=== PATIENT | female | born 1940 | race Caucasian/White ===

== ENCOUNTER 2016-12-04 14:55 | Inpatient (IN) | payer MEDICARE ==
--- NOTE | ~2016-12-04 | HP ---
Unit #: [id number] #: [id number] Patient: MAGALY DOTSON [id number] [address] [address] [id number] I MR#: [id number] NAME: MAGALY DOTSON. ROOM: 463 Age: 76 Sex: F Admission Date: 12/04/2016 : 1940 Attending Physician: Sai Gatica M.D. Primary Care Physician: Sai Gatica M.D. HISTORY AND PHYSICAL HISTORY OF PRESENT ILLNESS The patient is a 76-year-old white female with a history of osteoporosis, hypertension, hyperlipidemia, generalized anxiety disorder, dementia. She was seen in the ER with 24 hours of nausea, vomiting and fever. She was afebrile there. Flu swab was negative. Chest x-ray showed atelectasis but no obvious infiltrates. CT scan of the abdomen and pelvis was negative except for a small gallstone with an otherwise appearing normal gallbladder. Urinalysis was grossly abnormal consistent with a urinary tract infection and the patient was admitted. The patient is essentially nonverbal. She just smiles and laughs when examined and talked to. Her daughter is at the bedside and states that she appears to be feeling better and has not had any further nausea and vomiting in the past 24 hours. The patient is unaware that she has any urinary tract symptoms but, again, she is essentially nonverbal. ALLERGIES She has no known drug allergies. MEDICATIONS Her medications prior to admission: 1. Aspirin 81 mg daily. 2. Lexapro 20 mg daily. 3. Vitamin D 50,000 units weekly. 4. Pravastatin, dose unknown daily. 5. Lisinopril 20 mg daily. 6. Fosamax 70 mg weekly. PAST SURGICAL HISTORY The patient has no significant surgical history. PAST MEDICAL HISTORY 1. Hypertension. 2. Osteoporosis. 3. Hyperlipidemia. 4. Generalized anxiety disorder. 5. Dementia. SOCIAL HISTORY . Nonsmoker, nondrinker. No street drug use. FAMILY HISTORY Noncontributory. PHYSICAL EXAMINATION Unit #: [id number] #: [id number] Patient: MAGALY DOTSON GENERAL: She is awake, alert, again nonverbal, just smiles and laughs when questioned or talked to or examined. VITAL SIGNS: T-max overnight was 100.5 degrees, pulse 92, respirations 16. Blood pressure this morning was 81/55 but not repeated. O2 sat on range of motion air is 96%. HEENT: Unremarkable. NECK: Supple without JVD, bruits, adenopathy or thyromegaly. CHEST: Clear to auscultation. HEART: Regular rate and rhythm without any murmurs, rubs or gallops. ABDOMEN: Soft, nondistended, nontender with positive bowel sounds and no hepatosplenomegaly. EXTREMITIES: No clubbing, cyanosis or edema. /RECTAL: Deferred. NEUROLOGIC EXAM: Grossly intact except for the patient's obvious dementia. DIAGNOSTIC STUDIES LABORATORY: First set of cardiac enzymes were normal except for a CK MB of 9. Her troponin was less than 0.05. Second set of CK MB was 5 and troponin was still less than 0.05. CBC shows a white count of 13.8 with a left shift. It was otherwise normal. Influenzae A and B are negative. Lactic acid was 2, within normal limits. BNP is normal except for a BUN of 35, a GFR of 39.8 and random blood sugar of 141. PT and PTT are within normal limits. Urinalysis shows trace amount of leukocytes, one urobilinogen, 10-25 RBCs, 4+ bacteria, 5-10 hyaline casts. IMAGING: Single view chest x-ray - low lung volumes. Questionable mild cardiomegaly. Some vascular prominence which may be secondary to low lung volumes. Some kyphoscoliosis. CT scan of the abdomen and pelvis. No acute findings. Probable tiny gallstone near an otherwise appearing normal gallbladder. Urine culture has already come back this morning at greater than 100,000 colonies of Gram-negative rods, felt to be probably E. coli. Patient already started on Levaquin and IV fluids. IMPRESSION 1. Urinary tract infection with Gram-negative reagan. 2. Hypotension. 3. Dehydration. 4. Acute kidney injury. 5. Nausea and vomiting secondary to above. 6. Dementia. 7. Osteoporosis. 8. Hyperlipidemia. 9. Generalized anxiety disorder. 10. History of hypertension. PLAN Will give her an IV fluid bolus. Will continue her IV fluids. Please Unit #: [id number] #: [id number] Patient: MAGALY DOTSON note - her EKG on admission looks to be a sinus rhythm but there is a lot of baseline water and the computer has written it out as an accelerated junctional rhythm. There is low voltage QRS and nonspecific ST-T abnormality but, again, her cardiac enzymes are normal. It is going to be repeated today. Will follow her electrolytes, renal function. She has been placed on Lovenox for DVT prophylaxis. Her diet will be advanced. All of her home medicines are currently being held. Further evaluation pending results of above. Dictated by Sai Gatica M.D. ANA M/priya TD: 12/05/2016 07:44 JOB #: [id number] HISTORY AND PHYSICAL Page 1 of 1 X Sai Gatica MD X HISTORY AND PHYSICAL
--- NOTE | ~2016-12-04 | EKG ---
PATIENT: MAGALY DOTSON UNIT #: [id number] Ventricular Rate: 76 BPM Atrial Rate: 76 BPM QRS Duration: 66 ms Q-T Interval: 408 ms QTC Calculation(Bezet): 459 ms Calculated R [place]: -12 degrees Calculated T [place]: -6 degrees Diagnosis Line: Sinus rhythm Diagnosis Line: Low voltage QRS Baseline wander Diagnosis Line: Inferior infarct , age undetermined Diagnosis Line: Abnormal ECG Diagnosis Line: When compared with ECG of 04-DEC-2016 14:53, Diagnosis Line: (unconfirmed) Diagnosis Line: No significant change was found Diagnosis Line: Confirmed by JOHN JASMINE MD ([id number]) on 12/05/2016 Diagnosis Line: 9:22:48 PM INTERPRETING MD: KENROY RICHARD
--- NOTE | ~2016-12-04 | CT4 ---
[facility] A Service of [facility] RADIOLOGY TEXT RESULTS PATIENT: MAGALY DOTSON LOCATION: [place] [address] : [birth year] UNIT #: [id number] AGE: [address]: Sai Gatica MD SEX: F ORDER DR: [id number] [facility] [address] [facility] [place], [place] [address] [id number] E MR#: [id number] Acc #: [id number] NAME: MAGALY DOTSON : 1940 SEX: F STUDY DATE/TIME: 12/04/2016 15:08 UNIT: [facility] ROOM: STUDY DESCRIPTION: CT Abd and Pelv Wo Cont Attending Physician: Shalonda Ramirez M.D. Ordering Physician: Shalonda Ramirez M.D. Primary Care Physician: Sai Gatica M.D. MEDICAL IMAGING REPORT This report is preliminary unless electronic signature is present EXAM CT abdomen and pelvis, 12/04/2016. HISTORY Fever and vomiting for the last 2 days. TECHNIQUE Axial noncontrasted images were obtained through the abdomen and pelvis. Multiplanar reformats were obtained. This CT exam was performed with one or more of the following radiation dose reduction techniques: automatic exposure control, adjustment of mA and/or kV according to patient size, and iterative reconstruction. COMPARISON No comparison. FINDINGS ABDOMEN: There is atelectasis in both lung bases. The gallbladder may contain a tiny stone, but it is otherwise normal. No renal or ureteral stones are seen, and there is no hydronephrosis. The unenhanced solid organs are normal. The unopacified GI tract is grossly normal. No free fluid is seen. PELVIS: There are no lower ureteral stones. The bladder is normal. Solid pelvic organs are normal for patient age. The appendix is normal, as is the remainder of the unopacified GI tract. There are bilateral L5 pars defects with grade 1 spondylolisthesis at L5-S1. There is also degenerative disc disease at L5-S1. IMPRESSION 1. No acute findings in the abdomen or pelvis. 2. Grossly normal unopacified GI tract, including the appendix. STS. [facility] A Service of [facility] RADIOLOGY TEXT RESULTS PATIENT: MAGALY DOTSON LOCATION: [place] [address] : [birth year] UNIT #: [id number] AGE: [address]: Sai Gatica MD SEX: F ORDER DR: 3. No renal or ureteral stones. No hydronephrosis. 4. Probable tiny gallstone with an otherwise normal-appearing gallbladder. Dictated by... Arias Valadez Jr., M.D. THIS IS AN ELECTRONICALLY VERIFIED REPORT Arias Valadez Jr., M.D. at 12/05/2016 1:03 PM SHEMAR/nkiki TD: 12/04/2016 18:33 JOB #: [id number] MEDICAL IMAGING REPORT Page 1 of 1 COPY
--- NOTE | ~2016-12-04 | CR72 ---
[facility] A Service of [facility] RADIOLOGY TEXT RESULTS PATIENT: MAGALY DOTSON LOCATION: [place] [address] : 40 UNIT #: [id number] AGE: [address]: Sai Gatica MD SEX: F ORDER DR: [id number] [facility] [address] [place], [place] [address] [id number] E MR#: [id number] Acc #: [id number] NAME: MAGALY DOTSON : 1940 SEX: F STUDY DATE/TIME: 12/04/2016 14:44 UNIT: [facility] ROOM: STUDY DESCRIPTION: CR Chest Single View Portable Attending Physician: Shalonda Ramirez M.D. Ordering Physician: Shalonda Ramirez M.D. Primary Care Physician: Sai Gatica M.D. MEDICAL IMAGING REPORT This report is preliminary unless electronic signature is present EXAM Portable chest x-ray, 12/04/2016. HISTORY Vomiting. Fever, coughing up green mucus. Duration 1 day. TECHNIQUE AP radiograph of the chest is presented. COMPARISON No prior chest radiographs for comparison. FINDINGS Heart mildly enlarged. Some of this appearance may be artifactual and related to low lung volumes. Lung volumes are low with central bronchovascular crowding. Borderline vascular prominence may reflect the low lung volumes. Correlate with any clinical concern for mild vascular congestion. The right lung is otherwise clear. There are some patchy linear densities at the left lung base adjacent to the diaphragm, probably atelectatic in nature, given lung volumes. Basilar pneumonitis not excluded. No dense airspace disease, pleural effusion, or pneumothorax. No suspicious nodule. Thoracolumbar scoliosis, convex to right, mid thoracic spine, and to left lower thoracic spine and upper lumbar spine. No acute bony abnormality. The visualized bowel gas pattern within normal limits. Dictated by... Gage Musa M.D. THIS IS AN ELECTRONICALLY VERIFIED REPORT Gage Musa M.D. at 12/05/2016 5:13 PM JSK/nikki [facility] A Service of [facility] RADIOLOGY TEXT RESULTS PATIENT: MAGALY DOTSON LOCATION: [facility] 463-01 : 40 UNIT #: [id number] AGE: [address]: Sai Gatica MD SEX: F ORDER DR: TD: 12/04/2016 18:11 JOB #: [id number] MEDICAL IMAGING REPORT Page 1 of 1 COPY
--- NOTE | ~2016-12-04 | EKG ---
PATIENT: MAGALY DOTSON UNIT #: [id number] Ventricular Rate: 85 BPM Atrial Rate: 84 BPM QRS Duration: 68 ms Q-T Interval: 406 ms QTC Calculation(Bezet): 483 ms Calculated R [place]: -7 degrees Calculated T [place]: -13 degrees Diagnosis Line: Sinus rhythm Diagnosis Line: Low voltage QRS Diagnosis Line: Nonspecific ST and T wave abnormality Diagnosis Line: Abnormal ECG Baseline wander Diagnosis Line: No previous ECGs available Diagnosis Line: Confirmed by JOHN JASMINE MD ([id number]) on 12/05/2016 Diagnosis Line: 9:16:32 PM INTERPRETING MD: KERNOY RICHARD
--- NOTE | ~2016-12-04 | DS ---
Unit #: [id number] #: [id number] Patient: MAGALY DOTSON [id number] [address] [address] [id number] I MR#: [id number] NAME: MAGALY DOTSON. ROOM: 463 Age: 76 Sex: F Admission Date: 12/04/2016 : 1940 Discharge Date: 12/07/2016 Attending Physician: Sai Gatica M.D. Primary Care Physician: Sai Gatica M.D. DISCHARGE SUMMARY PRINCIPAL DISCHARGE DIAGNOSES 1. Extended-spectrum beta-lactamases Escherichia coli urinary tract infection with pyelonephritis. 2. Acute kidney injury secondary to dehydration. 3. Dementia. 4. Osteoporosis. 5. Hyperlipidemia. 6. Generalized anxiety disorder. 7. Hypotension. 8. Nausea and vomiting secondary to pyelonephritis. PROCEDURES None. CONSULTANTS None. REASON FOR HOSPITALIZATION The patient is a 76-year-old white female with history of osteoporosis, hypertension, hyperlipidemia, dementia, chills, anxiety disorder, seen in the emergency room with 24 hours of nausea, vomiting, and fever. In the ER, she was afebrile, had evidence of urinary tract infection and dehydration and was admitted for same. BP soon after admission fell with the systolic in the 80s. O2 sats were good at 96%. Cardiac enzymes were normal. White count was elevated at 13.8 with a left shift. Influenza A and B were negative. Lactic acid was 2.0. BUN 35, GFR 39.8. Coags normal. Chest x-ray; mild cardiomegaly, atelectasis of left lower lobe. Low lung volumes. EKG; baseline artifact, low-voltage QRS, nonspecific ST-T abnormality. A CT scan of the pelvis showed no active disease except for a probable gallstone and otherwise normal gallbladder and the patient was admitted. HOSPITAL COURSE The patient was admitted. She was given vigorous IV fluids for dehydration and hypotension. Her antihypertensives were held. She was started on Levaquin and Rocephin pending urine culture and blood cultures. Blood cultures showed no growth to date. Urine culture grew greater than 10 to the 5th ESBL E. coli. The patient is switched to Bactrim p.o. Currently, tolerating regular diet. No further nausea or vomiting. DIAGNOSTIC STUDIES LABORATORY RESULTS: Labs are stable. Currently, her CBC is normal except for hemoglobin of 11, which is dropped secondary to rehydration. Her BMP Unit #: [id number] #: [id number] Patient: MAGALY DOTSON is normal except for CO2 of 18 and a GFR of 48.7. She is being discharged home on a regular diet. CURRENT MEDICATIONS Lexapro 20 mg daily, pravastatin 40 mg daily, lisinopril is on hold, Fosamax 70 mg p.o. weekly, aspirin 81 mg p.o. daily, Bactrim double strength one p.o. b.i.d. for an additional 13 days for a full 14-day course for pyelonephritis. She is to have an office visit with me in 1 week with a CBC, BMP, and urinalysis. Dictated by... Sai Gatica M.D. ANA M/geraldine TD: 12/07/2016 23:13 JOB #: [id number] DISCHARGE SUMMARY Page 1 of 1 X Sai Gatica MD X DISCHARGE SUMMARY
[2016-12-04 14:44] LABS: POC - TROPONIN <0.05 ng/mL (<=0.05)
[~2016-12-04 14:55] MED LIST: ARICEPT PO; CARTIA XT PO; LEXAPRO PO; LISINOPRIL PO; NEXIUM PO; ZOCOR PO
[2016-12-04 14:56] LABS: URINE SOURCE CATH
[2016-12-04 15:01] LABS: BASOPHIL% 0.2 % (0-2.5); HEMATOCRIT 39.1 % (35.0-45.0); HEMOGLOBIN 12.6 gm/dL (12.0-16.0); LYMPHOCYTE# 1.2 X10e3 (1.0-3.5); LYMPHOCYTE% 8.7 % (17.0-45.0); MEAN CELL VOLUME 95.6 FL (83-96); MEAN CORPUSCULAR HEMOGLOBIN 30.9 PG (28-34); MEAN CORPUSCULAR HGB CONC 32.3 g/dL (30-36); MEAN PLATELET VOLUME 8.9 FL (6.5-11.5); MONOCYTE# 1.4 X10e3 (0-1.0); MONOCYTE% 10.4 % (3.0-12.0); NEUTROPHIL# 11.1 X10e3 (1.5-7.1); NEUTROPHIL% 80.7 % (40-75); PLATELET COUNT 349 X10e3 (140-420); RED BLOOD COUNT 4.09 X10e (3.90-5.30); RED CELL DISTRIBUTION WIDTH 12.3 % (11.0-15.5); WHITE BLOOD COUNT 13.8 X10e3 (4.0-10.5)
[2016-12-04 15:04] LABS: DIFF IND NO
[2016-12-04 15:21] LABS: INFLUENZA A NEG (NEG); INFLUENZA B NEG (NEG)
[2016-12-04 15:31] LABS: ALBUMIN SERUM 4.5 g/dL (3.5-5.0); BILIRUBIN, DIRECT 0.1 mg/dL (0.0-0.2); BILIRUBIN,INDIRECT 0.3 mg/dL (0.0-0.9); BILIRUBIN,TOTAL 0.4 mg/dL (0.2-2.0); BUN/CREATININE RATIO 26.92; CALCIUM SERUM 9.6 mg/dL (8.4-10.2); CREATININE SERUM 1.3 mg/dL (0.6-1.4); GLOM FILT RATE Estimated 39.8 mL/min (>60); POTASSIUM 4.3 mmol/L (3.5-5.1); PROTEIN TOTAL SERUM 8.1 g/dL (6.0-8.3)
[2016-12-04 15:33] LABS: PARTIAL THROMBOPLASTIN TIME 23.6 SECONDS (23.5-31.3); PROTHROMBIN TIME (PATIENT) 10.2 SECONDS (9.6-11.5)
[2016-12-04 15:41] LABS: URINE APPEARANCE CLOUDY; URINE BILIRUBIN NEG (NEG); URINE BLOOD TRACE (NEG); URINE COLOR YELLOW; URINE GLUCOSE NEG (NEG); URINE KETONE TRACE (NEG); URINE LEUKOCYTE ESTERASE TRACE (NEG); URINE NITRATE NEG (NEG); URINE PH 5.5 (5-8); URINE PROTEIN NEG (NEG); URINE SPECIFIC GRAVITY 1.024 (1.003-1.035)
[2016-12-04 15:45] LABS: CULTURE INDICATED? YES; URINE BACTERIA AUWI 4+ (NEGATIVE); URINE SQUAMOUS EPITHELIAL CELL OCC /[HPF]
[2016-12-04] MEDS ORDERED: ESCITALOPRAM OX20 MG PO (19:16)
[2016-12-04] MEDS ORDERED: ASPIRIN81 M2 PO (19:16)
[2016-12-04] MEDS ORDERED: PRAVASTATIN SOD40 MG PO (19:17)
[2016-12-04] MEDS ORDERED: VITAMIN D50000 UNIT PO (19:17)
[2016-12-04] MEDS ORDERED: LISINOPRIL20 MG PO (19:18)
[2016-12-04] MEDS ORDERED: ALENDRONATE SOD70 MG PO (19:18)
[2016-12-04 20:38] LABS: POC - TROPONIN <0.05 ng/mL (<=0.05)
[2016-12-06 04:19] LABS: BASOPHIL# 0.1 X10e3 (0-0.3); BASOPHIL% 0.9 % (0-2.5); EOSINOPHIL# 0.1 X10e3 (0-0.7); EOSINOPHIL% 1.7 % (0.0-7.0); HEMATOCRIT 31.2 % (35.0-45.0); LYMPHOCYTE# 1.8 X10e3 (1.0-3.5); LYMPHOCYTE% 26.3 % (17.0-45.0); MEAN CELL VOLUME 95.8 FL (83-96); MEAN CORPUSCULAR HEMOGLOBIN 31.4 PG (28-34); MEAN CORPUSCULAR HGB CONC 32.7 g/dL (30-36); MEAN PLATELET VOLUME 8.5 FL (6.5-11.5); MONOCYTE# 0.7 X10e3 (0-1.0); MONOCYTE% 10.8 % (3.0-12.0); NEUTROPHIL# 4.2 X10e3 (1.5-7.1); NEUTROPHIL% 60.3 % (40-75); PLATELET COUNT 230 X10e3 (140-420); RED BLOOD COUNT 3.25 X10e (3.90-5.30); RED CELL DISTRIBUTION WIDTH 12.4 % (11.0-15.5); WHITE BLOOD COUNT 6.9 X10e3 (4.0-10.5)
[2016-12-06 04:44] LABS: CALCIUM SERUM 8.3 mg/dL (8.4-10.2); GLOM FILT RATE Estimated 54.7 mL/min (>60); HEMOGLOBIN 10.2 gm/dL (12.0-16.0); POTASSIUM 4.3 mmol/L (3.5-5.1)
[2016-12-06 04:45] LABS: DIFF IND NO
[2016-12-07 04:04] LABS: BASOPHIL% 0.6 % (0-2.5); DIFF IND NO; EOSINOPHIL# 0.2 X10e3 (0-0.7); EOSINOPHIL% 1.9 % (0.0-7.0); LYMPHOCYTE# 1.6 X10e3 (1.0-3.5); LYMPHOCYTE% 20.2 % (17.0-45.0); MEAN CELL VOLUME 95.8 FL (83-96); MEAN CORPUSCULAR HEMOGLOBIN 31.8 PG (28-34); MEAN CORPUSCULAR HGB CONC 33.2 g/dL (30-36); MEAN PLATELET VOLUME 8.8 FL (6.5-11.5); MONOCYTE# 0.8 X10e3 (0-1.0); MONOCYTE% 10.5 % (3.0-12.0); NEUTROPHIL# 5.2 X10e3 (1.5-7.1); NEUTROPHIL% 66.8 % (40-75); PLATELET COUNT 240 X10e3 (140-420); RED BLOOD COUNT 3.45 X10e (3.90-5.30); RED CELL DISTRIBUTION WIDTH 12.3 % (11.0-15.5); WHITE BLOOD COUNT 7.8 X10e3 (4.0-10.5)
[2016-12-07 04:36] LABS: BUN/CREATININE RATIO 10.9; CALCIUM SERUM 8.3 mg/dL (8.4-10.2); CREATININE SERUM 1.1 mg/dL (0.6-1.4); GLOM FILT RATE Estimated 48.7 mL/min (>60); POTASSIUM 4.2 mmol/L (3.5-5.1)
[2016-12-07] MEDS ORDERED: BACTRIM DS TABL1 TA2 PO (11:19)
== END 2016-12-07 12:20 | disposition home or self-care (01) | DRG 690 ==
LOC: CED 14:55 → CEDOF 18:02 → C4C 20:45
PROVIDERS: Emergency Medicine; Internal Medicine
DX: N12 Tubulo-interstitial nephritis, not specified as acute or chronic (principal); N17.9 Acute kidney failure, unspecified; I95.9 Hypotension, unspecified; E86.0 Dehydration; F03.90 Unspecified dementia, unspecified severity, without behavioral disturbance, psychotic disturbance, mood disturbance, and anxiety; B96.20 Unspecified Escherichia coli [E. coli] as the cause of diseases classified elsewhere; M81.0 Age-related osteoporosis without current pathological fracture; E78.5 Hyperlipidemia, unspecified; F41.1 Generalized anxiety disorder; Z79.82 Long term (current) use of aspirin; N39.0 Urinary tract infection, site not specified; I10 Essential (primary) hypertension
CPT/HCPCS: 36415; 51701; 71010; 74176; 80048; 80076; 81003; 82553; 83605; 84484; 85025; 85610; 85730; 87040; 87086; 87088; 87186; 87804; 93005; 96374; 99285; J0696; J1650; J1956; J2405

== ENCOUNTER → 2017-01-11 | Outpatient (CLI) | payer MEDICARE ==
[~2017-01-11] MED LIST changes: +ALENDRONATE SOD70 MG PO; +ASPIRIN81 M2 PO; +BACTRIM DS TABL1 TA2 PO; +ESCITALOPRAM OX20 MG PO; +LISINOPRIL20 MG PO; +PRAVASTATIN SOD40 MG PO; +VITAMIN D50000 UNIT PO
--- NOTE | ~2017-01-11 | US77 ---
[facility] A Service [facility] RADIOLOGY TEXT RESULTS PATIENT: MAGALY DOTSON LOCATION: [facility] : 40 UNIT #: [id number] AGE: [address]: Sai Gatica MD SEX: F ORDER DR: [id number] [facility] [address] [place], [place] [address] [id number] O MR#: [id number] Acc #: [id number] NAME: MAGALY DOTSON : 1940 SEX: F STUDY DATE/TIME: 01/11/2017 12:14 UNIT: US ROOM: STUDY DESCRIPTION: US Kidney Bilateral Complete Attending Physician: Sai Gatica M.D. Ordering Physician: Sai Gatica M.D. Primary Care Physician: Sai Gatica M.D. MEDICAL IMAGING REPORT This report is preliminary unless electronic signature is present EXAM Renal ultrasound. INDICATION Recurrent urinary tract infection. PROCEDURE Lebron-scale and Doppler imaging of the kidneys and bladder. COMPARISON None FINDINGS Technically difficult study performed in the patient's wheelchair. COMPARISON CT from 12/04/2016. FINDINGS The kidneys are not well seen. Right kidney measures 6.8 cm. Cortical thickness is 9 mm. Slightly increased echotexture. No obvious hydronephrosis. Left kidney measures approximately 8.5 cm. Cortical thickness approximately 9 mm with slightly increased echotexture. Unremarkable bladder. IMPRESSION 1. Kidneys are small with mild cortical thinning and increased echotexture suggesting changes of chronic renal disease. 2. No obvious hydronephrosis. Dictated by... [facility] A Service of [facility] RADIOLOGY TEXT RESULTS PATIENT: MAGALY DOTSON LOCATION: [facility] : 40 UNIT #: [id number] AGE: [address]: Sai Gatica MD SEX: F ORDER DR: Catrachito Trinh M.D. THIS IS AN ELECTRONICALLY VERIFIED REPORT Catrachito Trinh M.D. at 01/14/2017 7:43 AM Luis TD: 01/11/2017 15:26 JOB #: [id number] MEDICAL IMAGING REPORT Page 1 of 1 COPY
== END | disposition home or self-care (01) ==
LOC: CGUS 11:50
DX: N28.9 Disorder of kidney and ureter, unspecified (principal); N27.1 Small kidney, bilateral; N28.89 Other specified disorders of kidney and ureter
CPT/HCPCS: 76770